=== PATIENT | male | born 1960 | race Caucasian/White ===

== ENCOUNTER 2021-01-17 15:13 | Emergency (ER) | payer MEDICAID ==
[2021-01-17 15:48] VITALS: RESP 18; TEMP 98.7
[2021-01-17] MEDS ORDERED: KETOROLAC 15 MG/ML 1 ML VIAL IM STA (17:33)
[2021-01-17] MEDS ORDERED: ORPHENADRINE 30 MG/ML 2 ML VIAL IM STA (17:33)
--- NOTE | 2021-01-17 17:42 | ED ---
Fall HPI - General Chief Complaint: Fall Stated Complaint: Fall/Lt Leg Pain Source: patient, family, RN notes reviewed Mode of arrival: ambulatory - History of Present Illness Initial Comments: 60-year-old white male, alert and oriented 4, presents to the emergency room with complaints of [place] approximately around 10 AM. Patient states that his one leg went one way and the other leg went the other listed the splits and is complaining of left hip pain. Patient states it's worse when he tries to ambulate or bear weight. Patient took 3 Motrin at 10:30 this morning with minimal relief. He denies any other injuries no loss of consciousness. Patient does not take any blood thinners and did not hit his head. He has a history of cholecystectomy and bariatric surgery in 2011 with no complications. MD Complaint: fall (As the been fall this morning) -: hour(s) (8) Fall From: standing When Fall Occurred: 4-6 hours [employer] (State hours ago) Fall Witnessed: yes, by family () Place Fall Occurred: other Loss of Consciousness: none (Outside a campground) Prolonged Down Time?: no Symptoms Prior to Fall: none Location: other (Left hip) Severity scale (1-10): 10 (Only with weightbearing or movement) Quality: sharp Context: tripped/slipped (Slipped on wet leaves) Associated Symptoms: denies - Related Data Allergies Allergy/AdvReac Type Severity Reaction Status Date / Time No Known Allergies Allergy Verified 01/17/21 15:47 Review of Systems ROS Statement: Those systems with pertinent positive or pertinent negative responses have been documented in the HPI. ROS Other: All systems not noted in ROS Statement are negative. Past Medical History Past Medical History: No Reported History Past Surgical History: Bariatric Surgery, Cholecystectomy Smoking Status: Former smoker Past Alcohol Use History: Occasional Past Drug Use History: None Reported General Exam Limitations: no limitations General appearance: alert, in no apparent distress Head exam: Present: atraumatic, normocephalic, normal inspection Eye exam: Present: normal appearance, PERRL, EOMI. Absent: scleral icterus, conjunctival injection, periorbital swelling ENT exam: Present: normal exam, normal oropharynx, mucous membranes moist Neck exam: Present: normal inspection, full ROM. Absent: tenderness, meningismus, lymphadenopathy, thyromegaly Respiratory exam: Present: normal lung sounds bilaterally. Absent: respiratory distress, wheezes, rales, rhonchi, stridor, chest wall tenderness, accessory muscle use, decreased breath sounds Cardiovascular Exam: Present: regular rate, normal rhythm, normal heart sounds. Absent: systolic murmur, diastolic murmur, rubs, gallop, clicks GI/Abdominal exam: Present: soft, normal bowel sounds. Absent: distended, tenderness, guarding, rebound, rigid Extremities exam: Present: normal inspection, full ROM, tenderness (Left hip), normal capillary refill. Absent: pedal edema, joint swelling, calf tenderness Left Hip exam: Present: normal inspection, tenderness (Left hip with flexion and external rotation), external rotation, internal rotation, pelvic stability. Absent: laceration, ecchymosis, deformity, crepitus, dislocation, erythema, shortening Upper Leg exam: Present: normal inspection, full ROM. Absent: laceration, ecchymosis Knee exam: Present: normal inspection, abrasion Lower Leg exam: Present: normal inspection Ankle exam: Present: normal inspection Foot/Toe exam: Present: normal inspection Neurovascular tendon exam: Present: no vascular compromise. Absent: pulse deficit, abnormal cap refill, motor deficit, sensory deficit, tendon deficit, pallor, foot drop Back exam: Present: normal inspection. Absent: tenderness, CVA tenderness (R), CVA tenderness (L), muscle spasm, paraspinal tenderness, vertebral tenderness, rash noted Neurological exam: Present: alert, oriented X3, CN II-XII intact Psychiatric exam: Present: normal affect, normal mood Skin exam: Present: warm, dry, intact, normal color. Absent: rash, cyanosis, diaphoretic, erythema, petechiae, pallor, mottled Course Vital Signs 01/17/21 15:44 Temperature 98.7 F Pulse Rate 85 Respiratory 18 Rate Blood Pressure 135/68 O2 Sat by Pulse 98 Oximetry Medical Decision Making - Medical Decision Making Patient had a ground-level fall where he slipped on wet leaves and hyperextended his left hip. Patient did not hit his head is not on any blood thinners. Patient denies low back pain, or saddle anesthesia or bowel or bladder incontinence. She does have an abrasion to his left lower knee, Denies any other injuries. Vital signs are stable. Patient states pain is only when he tries to ambulate. X-ray shows the pelvic ring is intact, sacroiliac joints are also intact there is no sign of fracture to the left femur joint spaces are normal. There is no pain with flexion and internal rotation. Patient does have some pain with external rotation but is tolerable. Patient's only medical history is a cholecystectomy and bariatric surgery. Denies steroid use, denies smoking, no history of osteoarthritis. Patient given Norflex and Toradol IM. Was able to ambulate in room with minimal discomfort at discharge. directed to follow up with primary care doctor in 1 week. Case discussed with Dr. Cotton was agreeable to this plan of care Disposition Clinical Impression: Fall, Strain of left hip Clinical Impression: (Ruled Out): Strain of hip flexor Disposition: HOME SELF-CARE Condition: Fair Instructions (If sedation given, give patient instructions): Fall Prevention (ED) Additional Instructions: Take Tylenol 3 as prescribed for pain. Follow-up with the primary care doctor in 1 week, rest and no heavy lifting. Return to the emergency room with worsening pain or inability to ambulate. Is patient prescribed a controlled substance at d/c from ED?: No Referrals: Anh Denis MD [Primary Care Provider] - 1-2 days Time of Disposition: 19:04
--- NOTE | 2021-01-17 17:43 | XR ---
EXAMINATION TYPE: XR Hip LT and AP Pelvis DATE OF EXAM: 01/17/2021 COMPARISON: NONE HISTORY: Pain TECHNIQUE: 4 views FINDINGS: The pelvic ring is intact. Sacroiliac joints are intact. Proximal left femur is intact. The re is no hip dysplasia. Hip joint spaces are fairly normal. IMPRESSION: Negative pelvis and left hip exam.
[2021-01-17] MEDS ORDERED: ACET/COD 300 MG/30 MG STARTER PACK 6 TAB BTL PO STA (19:30)
[2021-01-17 19:41] VITALS: BP 130/86; PULSE 91
== END 2021-01-17 19:41 | disposition home or self-care (01) ==
LOC: EC 15:13
DX: S76.012A Strain of muscle, fascia and tendon of left hip, initial encounter (principal); S80.212A Abrasion, left knee, initial encounter; Z87.891 Personal history of nicotine dependence; Z90.49 Acquired absence of other specified parts of digestive tract; Z98.84 Bariatric surgery status; W01.0XXA Fall on same level from slipping, tripping and stumbling without subsequent striking against object, initial encounter; Y92.833 Campsite as the place of occurrence of the external cause
CPT/HCPCS: 73502; 99284; 96372 ×2; J2360; J1885